=== PATIENT | female | born 1960 | race Caucasian/White ===

== ENCOUNTER 2020-12-10 10:34 | Emergency (ER) | payer OTHER ==
[2020-12-10 11:47] LABS: BASOPHIL 0.5 % (0-2); EOSINOPHIL 0.8 % (0-5); HCT 35.3 % (37.0-47.0); HGB 11.8 g/dl (12.5-16.0); LYMPHOCYTE 18.1 % (15-48); MCH 28.2 pg (25.0-31.0); MCHC 33.4 g/dL (32.0-36.0); MCV 84.4 fL (78.0-100.0); MONOCYTE 7.4 % (0-12); MPV 10.1 fL (6.0-9.5); NEUTROPHIL 72.7 % (41-80); NRBC 0; PLT 223 K/uL (150-400); RBC 4.18 M/uL (4.20-5.40); RDW 13.2 % (11.5-14.0); WBC 7.8 K/uL (4.0-10.5)
[2020-12-10 11:47] LABS: BILIRUBIN NEGATIVE (NEGATIVE); BLOOD 2+ Ery/uL (NEGATIVE); CLARITY CLEAR (CLEAR); COLOR YELLOW (YELLOW); GLUCOSE (U) NORMAL (NORMAL); LEUKOCYTES NEGATIVE Leu/uL (NEGATIVE); NITRITE NEGATIVE (NEGATIVE); PROTEIN NEGATIVE (NEGATIVE); UROBILINOGEN 0.2 mg/dL (0.2-1.0)
[2020-12-10 12:04] LABS: URINARY WBC RARE
[2020-12-10 12:04] LABS: ALBUMIN 3.7 g/dL (3.4-5.0); BILIRUBIN - TOTAL 0.3 mg/dL (0.2-1.0); BUN/CREAT RATIO (CALC) 14.9 RATIO; CREATININE 0.67 mg/dL (0.51-0.95); GLOBULIN (CALCULATION) 3.5 g/dL; POTASSIUM 3.2 mmol/L (3.5-5.1); TOTAL PROTEIN 7.2 g/dL (6.4-8.2)
[2020-12-10] MEDS ORDERED: NAPROXEN500 MG PO (13:37)
[2020-12-10] MEDS ORDERED: NORCO 5-325 TA1 EACH PO (13:37)
[2020-12-10] MEDS ORDERED: FLOMAX0.4 MG PO (13:37)
== END 2020-12-10 13:56 | disposition home or self-care (01) ==
LOC: FER 10:34
PROVIDERS: Emergency Medicine
DX: N13.2 Hydronephrosis with renal and ureteral calculous obstruction (principal)
CPT/HCPCS: 36415; 80053; 81001; 82150; 83690; 85025; J1170; J2405

== ENCOUNTER 2021-07-28 10:14 | Emergency (ER) | payer OTHER ==
[~2021-07-28 10:14] MED LIST: FLOMAX0.4 MG PO; NAPROXEN500 MG PO; NORCO 5-325 TA1 EACH PO
[2021-07-28 11:30] LABS: BASOPHIL 0.5 % (0-2); EOSINOPHIL 0.1 % (0-5); HCT 36.5 % (37.0-47.0); HGB 11.7 g/dl (12.5-16.0); MCH 26.3 pg (25.0-31.0); MCHC 32.1 g/dL (32.0-36.0); MONOCYTE 9.8 % (0-12); MPV 9.6 fL (6.0-9.5); NEUTROPHIL 45.2 % (41-80); NRBC 0; PLT 292 K/uL (150-400); RBC 4.45 M/uL (4.20-5.40); RDW 14.1 % (11.5-14.0); WBC 7.6 K/uL (4.0-10.5)
[2021-07-28 11:47] LABS: BUN 10 mg/dL (7-18); BUN/CREAT RATIO (CALC) 14.7 RATIO; CHLORIDE 103 mmol/L (98-107); CO2 (BICARBONATE) 31 mmol/L (21-32); CREATININE 0.68 mg/dL (0.51-0.95); GLUCOSE 82 mg/dL (74-106)
[2021-07-28 11:48] LABS: C-REACTIVE PROTEIN <0.20 mg/dL (<=0.90)
[2021-07-28] MEDS ORDERED: NORVASC5 MG PO (12:11)
[2021-07-28] MEDS ORDERED: MUCINEX1200 MG PO (12:15)
[2021-07-28] MEDS ORDERED: FLONASE ALLER15.8 ML (12:15)
[2021-07-28] MEDS ORDERED: ZYRTEC10 MG PO (12:15)
== END 2021-07-28 13:19 | disposition home or self-care (01) ==
LOC: FER 10:14
PROVIDERS: Internal Medicine
DX: I87.9 Disorder of vein, unspecified (principal); I10 Essential (primary) hypertension; R09.81 Nasal congestion; K21.9 Gastro-esophageal reflux disease without esophagitis; Z79.899 Other long term (current) drug therapy
CPT/HCPCS: 36415; 80048; 85025; 86140; 99284